=== PATIENT | female | born 1995 ===

== ENCOUNTER → 2024-07-08 | Outpatient (CLI) | payer BC | END | disposition home or self-care (01) | LOC: LAB SHORT 10:39 → LAB 10:39 → LAB SHORT 07-09 10:39 | PROVIDERS: Advanced Practice Midwife | DX: Z01.419 Encounter for gynecological examination (general) (routine) without abnormal findings (principal) | CPT/HCPCS: G0123 ==

== ENCOUNTER → 2024-12-20 | Outpatient (CLI) | payer BC | LOC: LAB SHORT 13:43 → LAB 13:43 | DX: O09.90 Supervision of high risk pregnancy, unspecified, unspecified trimester (principal); Z3A.00 Weeks of gestation of pregnancy not specified | CPT/HCPCS: 87081; 87150 ==

== ENCOUNTER 2025-01-20 04:45 | Inpatient (IN) | payer BC ==
[2025-01-20] VITALS (12 sets, daily range): BP systolic 99–151; BP diastolic 55–80
[~2025-01-20] VITALS: Ht 170.2 cm; Wt 80.0 kg
[2025-01-20] MEDS ORDERED: ePHEDrine Sulfate 50 MG/ML 1ML Injection XX PRN (05:25)
[2025-01-20] MEDS ORDERED: Tranexamic Acid 100 ML IV SCH (05:25)
[2025-01-20] MEDS ORDERED: Carboprost Tromethamine 250 MCG/ML 1ML Amp IM PRN ×2 (05:25→07:35)
[2025-01-20] MEDS ORDERED: OXYTOCIN/RINGER'S LACTATE 500 ML IV PRN (05:25)
[2025-01-20] MEDS ORDERED: Methylergonovine Maleate 0.2MG / ML 1ML Amp IM PRN ×2 (05:25→07:40)
[2025-01-20] MEDS ORDERED: Oxytocin 10 Unit / ML Vial IM PRN (05:25)
[2025-01-20] MEDS ORDERED: FentaNYL 2mcg/ml-Bup 0.1% Epd 250 ML EPI PRN (05:25)
[2025-01-20] MEDS ORDERED: Ondansetron HCl 2 MG / ML 2ML Vial IV PRN (05:25)
[2025-01-20] MEDS ORDERED: Witch Hazel/Glycerin PADS TOP PRN (07:35)
[2025-01-20] MEDS ORDERED: Benzocaine Topical Anesthetic Spray 60GM TOP PRN (07:35)
[2025-01-20] MEDS ORDERED: OXYTOCIN/RINGER'S LACTATE 500 ML IV SCH (07:40)
[2025-01-20] MEDS ORDERED: Oxytocin 10 Unit / ML Vial IM ONE (07:40)
[2025-01-20] MEDS ORDERED: Rho(D) Immune Globulin 300 MCG / SYR IM ONE (07:40)
[2025-01-20] MEDS ORDERED: Prenatal Vit/FE Fumarate/FA 1 Tab PO SCH (09:00)
[2025-01-20] MEDS ORDERED: Ketorolac Tromethamine 30mg Vial IV SCH ×2 (09:20→12:00)
--- NOTE | 2025-01-20 10:40 | NUR ---
[facility] charting reviewed
[2025-01-21 00:15] VITALS: BP 119/76
[2025-01-21 05:00] VITALS: BP 111/67
[2025-01-21 07:30] VITALS: BP 111/68
== END 2025-01-21 10:15 | disposition home or self-care (01) | DRG 806 ==
LOC: OBS 04:45 → BC 04:46 → OBS 05:37 → BC 05:38
PROVIDERS: ADMIT Advanced Practice Midwife
PROC: 10E0XZZ Delivery of Products of Conception, External Approach (ICD-10-PCS; principal; 2025-01-20)
PROC: 4A1HXCZ Monitoring of Products of Conception, Cardiac Rate, External Approach (ICD-10-PCS; 2025-01-20)
DX: O48.0 Post-term pregnancy (principal); O47.1 False labor at or after 37 completed weeks of gestation; Z37.0 Single live birth; Z3A.40 40 weeks gestation of pregnancy; O26.893 Other specified pregnancy related conditions, third trimester; Z67.41 Type O blood, Rh negative; O77.0 Labor and delivery complicated by meconium in amniotic fluid; O71.82 Other specified trauma to perineum and vulva
CPT/HCPCS: 36415; 59025; 81003; 99214; A9270; J1885